=== PATIENT | female | born 1950 | race Caucasian/White ===

== ENCOUNTER 2016-11-20 19:47 | Emergency (ER) | payer OTHER ==
[2016-11-20 19:57] VITALS: PULSE 83; TEMP 98; BMI 24.0
--- NOTE | 2016-11-20 20:30 | PDOC ---
History of Present Illness - General Chief Complaint: Sore Throat Stated Complaint: SORE THROAT Time Seen by Provider: 11/20/16 20:09 History Source: Patient - History of Present Illness Timing/Duration: reports: this morning Associated Symptoms: reports: sore throat. denies: cough, earache, fever/chills , nasal congestion, nasal drainage Past History - Past Medical History Allergies/Adverse Reactions: Allergies Allergy/AdvReac Type Severity Reaction Status Date / Time No Known Allergies Allergy Verified 11/20/16 19:55 Home Medications: Ambulatory Orders Enalapril Maleate [Vasotec -] 10 mg PO DAILY 11/20/16 HTN: Yes - Surgical History Cholecystectomy: Yes - Immunization History Immunization Up to Date: Yes - Psycho/Social/Smoking Cessation Hx Suicidal Ideation: No Smoking History: Never smoked Information on smoking cessation initiated: No Hx Alcohol Use: No Drug/Substance Use Hx: No Review of Systems - Review of Systems Constitutional: No: Fever HEENTM: Yes: Throat Pain. No: Ear Pain Respiratory: No: Cough *Physical Exam - Vital Signs Last Vital Signs Temp Pulse Resp BP Pulse Ox 98.0 F 83 20 171/81 97 11/20/16 19:55 11/20/16 19:55 11/20/16 19:55 11/20/16 19:55 11/20/16 19:55 - Physical Exam General Appearance: Yes: Appropriately Dressed. No: Apparent Distress HEENT: positive: Normal Voice, Other (mild swelling to R tonsils w/ ?exudates, no uvular deviation). negative: Scleral Icterus (R), Scleral Icterus (L) Neck: positive: Supple. negative: Lymphadenopathy (R), Lymphadenopathy (L) Respiratory/Chest: negative: Respiratory Distress Integumentary: positive: Dry, Warm Neurologic: positive: Fully Oriented, Alert, Normal Mood/Affect Medical Decision Making - Medical Decision Making 11/20/16 20:28 66 yo F, h/o HTN, TMJ syndrome, non-smoker, p/w sore throat w/ significant dysphagia that started this am and had gradually gotten worse. No ear pain, f/ c. Babysits her grand-kids but states no sick contacts. Pt well ap and stable w / mild swelling w/ ?exudates to R tonsil, no e/o [employer]. Possibly viral, r/o strep. Took advil prior to arrival 11/20/16 21:37 Strep test neg. Pt discharge w/ otc meds for pain. Reasons to return d/w pt *DC/Admit/Observation/Transfer Diagnosis at time of Disposition: Sore throat - Discharge Dispostion Disposition: HOME Condition at time of disposition: Good - Patient Instructions Printed Discharge Instructions: Viral Pharyngitis Additional Instructions: Strep test was negative. You most likely have a viral illness. Continue advil for pain and return for worsening of symptoms
[2016-11-20 21:50] VITALS: BP 136/73
== END 2016-11-20 21:51 | disposition home or self-care (01) ==
LOC: JERFT 19:47
DX: R07.0 Pain in throat (principal)
CPT/HCPCS: 87070; 87430; 99281-25

== ENCOUNTER 2022-03-13 09:28 | Emergency (ER) | payer OTHER ==
[2022-03-13 09:43] VITALS: BP 155/71; PULSE 89; RESP 18; TEMP 98.5; BMI 24.0
[2022-03-13] MEDS ORDERED: SODIUM CHLORIDE 0.9% 500 ML INFUS.BAG IV ONE (09:51)
[2022-03-13 10:47] LABS: HEMATOCRIT 40.4 % (32.4-45.2); HEMOGLOBIN 14.2 G/dL (10.7-15.3); MCH 30.9 pg (25.7-33.7); MCHC 35.2 g/dl (32.0-36.0); MEAN CELL VOLUME 87.7 fl (80-96); MEAN PLT VOLUME 9.3 fl (7.5-11.1); PLATELET COUNT 176.3 10^3/uL (134-434); RBC 4.61 10^6/uL (3.60-5.2); RDW 14.3 % (11.6-15.6); WHITE BLOOD COUNT 11.4 10^3/uL (4.0-10.8)
[2022-03-13 10:56] LABS: BILIRUBIN,TOTAL 0.6 mg/dl (0.2-1); CALCIUM 9.7 mg/dl (8.5-10); CREATININE 0.7 mg/dl (0.55-1.3); TOT PROT 7.4 g/dl (6.4-8.2)
[2022-03-13 11:32] LABS: PLATELET ESTIMATE ADEQUATE
== END 2022-03-13 11:32 | disposition home or self-care (01) ==
LOC: FER 09:28
DX: E86.0 Dehydration (principal)
CPT/HCPCS: 0241U-QW; 36415; 80053; 81003; 84484; 85027; 87086; 93005; 99284-25

== ENCOUNTER 2022-06-03 14:21 | Emergency (ER) | payer OTHER ==
[2022-06-03 14:30] VITALS: RESP 16; BMI 23.8
[2022-06-03] MEDS ORDERED: SODIUM CHLORIDE 1,000 ML IV STA (14:46)
[2022-06-03 15:15] LABS: HEMATOCRIT 37.2 % (32.4-45.2); HEMOGLOBIN 12.7 G/dL (10.7-15.3); MCH 30.5 pg (25.7-33.7); MCHC 34.2 g/dl (32.0-36.0); MEAN CELL VOLUME 89.2 fl (80-96); MEAN PLT VOLUME 10.4 fl (7.5-11.1); RBC 4.17 10^6/uL (3.60-5.2); RDW 14.3 % (11.6-15.6); WHITE BLOOD COUNT 4.5 10^3/uL (4.0-10.8)
[2022-06-03 15:20] LABS: PLATELET ESTIMATE ADEQUATE
[2022-06-03 15:23] LABS: ALBUMIN 3.3 g/dl (3.4-5.0); BILIRUBIN,TOTAL 0.3 mg/dl (0.2-1); CALCIUM 8.6 mg/dl (8.5-10); CREATININE 0.7 mg/dl (0.55-1.3); TOT PROT 6.1 g/dl (6.4-8.2)
[2022-06-03 16:37] VITALS: BP 125/60; PULSE 78; TEMP 98.5
== END 2022-06-03 16:55 | disposition home or self-care (01) ==
LOC: FER 14:21
DX: E87.1 Hypo-osmolality and hyponatremia (principal); D69.6 Thrombocytopenia, unspecified; R77.0 Abnormality of albumin; R73.9 Hyperglycemia, unspecified
CPT/HCPCS: 0241U-QW; 36415; 80053; 85027; 93005; 99284-25

== ENCOUNTER 2022-06-07 10:11 | Emergency (ER) | payer OTHER ==
[2022-06-07 10:47] VITALS: BP 147/70; RESP 16; TEMP 98.7; BMI 22.3
[2022-06-07 10:52] VITALS: PULSE 70
== END 2022-06-07 11:33 | disposition home or self-care (01) ==
LOC: FER 10:11
DX: J09.X2 Influenza due to identified novel influenza A virus with other respiratory manifestations (principal)
CPT/HCPCS: 99281-25

== ENCOUNTER 2022-07-03 16:50 | Emergency (ER) | payer OTHER ==
[2022-07-03 17:20] VITALS: BP 162/74; PULSE 75; RESP 18; TEMP 98.3; BMI 22.2
== END 2022-07-03 17:23 | disposition home or self-care (01) ==
LOC: FER 16:50
DX: S61.210A Laceration without foreign body of right index finger without damage to nail, initial encounter (principal); W25.XXXA Contact with sharp glass, initial encounter
CPT/HCPCS: 99281-25

== ENCOUNTER 2023-12-23 09:40 | Emergency (ER) | payer OTHER ==
[2023-12-23 09:46] VITALS: BP 160/78; PULSE 69; RESP 18; TEMP 97.3; BMI 22.3
== END 2023-12-23 10:15 | disposition home or self-care (01) ==
LOC: FER 09:40
PROC: 0H9FXZZ Drainage of Right Hand Skin, External Approach (ICD-10-PCS; principal; 2023-12-23)
DX: L02.511 Cutaneous abscess of right hand (principal)
CPT/HCPCS: 99282-25

== ENCOUNTER 2024-04-28 08:50 | Emergency (ER) | payer OTHER ==
[2024-04-28 09:18] VITALS: BP 158/66; PULSE 94; RESP 16; TEMP 98.8; BMI 22.6
== END 2024-04-28 09:42 | disposition home or self-care (01) ==
LOC: FER 08:50
DX: S61.216A Laceration without foreign body of right little finger without damage to nail, initial encounter (principal); W55.03XA Scratched by cat, initial encounter
CPT/HCPCS: 99283-25

== ENCOUNTER 2024-04-30 11:31 | Emergency (ER) | payer OTHER ==
[2024-04-30 11:38] VITALS: BMI 22.3
[2024-04-30 11:55] VITALS: BP 125/53; PULSE 73; RESP 16; TEMP 99.1
== END 2024-04-30 13:03 | disposition home or self-care (01) ==
LOC: FER 11:31
PROC: 0H9FXZZ Drainage of Right Hand Skin, External Approach (ICD-10-PCS; principal; 2024-04-30)
DX: L02.511 Cutaneous abscess of right hand (principal); W22.8XXA Striking against or struck by other objects, initial encounter
CPT/HCPCS: 76882-TC-RT; 99284-25